=== PATIENT | female | born 1980 | race African-American/Black ===

== ENCOUNTER 2016-11-02 08:53 | Emergency (ER) | payer MEDICAID ==
[~2016-11-02] VITALS: Ht 160 cm; Wt 80.7 kg
[2016-11-02 08:56] VITALS: BP 140/99
== END 2016-11-02 09:40 | disposition home or self-care (01) ==
LOC: ER 08:54
DX: H10.9 Unspecified conjunctivitis (principal)
CPT/HCPCS: A4606; Z7610

== ENCOUNTER 2017-04-03 13:58 | Emergency (ER) | payer BC, MEDICAID ==
[~2017-04-03] VITALS: Ht 157.5 cm; Wt 77.1 kg
[2017-04-03 14:02] VITALS: BP 148/103
== END 2017-04-03 14:37 | disposition home or self-care (01) ==
LOC: ER 14:01
DX: H20.012 Primary iridocyclitis, left eye (principal); E11.9 Type 2 diabetes mellitus without complications
CPT/HCPCS: 99283; A4606; Z7610

== ENCOUNTER 2017-05-16 23:33 | Emergency (ER) | payer BC, MEDICAID, OTHER ==
[~2017-05-16] VITALS: Ht 157.5 cm; Wt 79.4 kg
[2017-05-16 23:38] VITALS: BP 135/92
[2017-05-17] MEDS ORDERED: ACETAMINOPHEN 325 MG TABLET PO ONE (00:30)
[2017-05-17] MEDS ORDERED: CEPHALEXIN MONOHYDRATE 500 MG CAPSULE PO ONE (00:30)
== END 2017-05-17 00:28 | disposition home or self-care (01) ==
LOC: ER 23:33
DX: H60.11 Cellulitis of right external ear (principal); E11.9 Type 2 diabetes mellitus without complications
CPT/HCPCS: 99283; A4606; Z7610

== ENCOUNTER 2018-11-23 08:38 | Emergency (ER) | payer BC, OTHER ==
[~2018-11-23] VITALS: Ht 154.9 cm; Wt 83.0 kg
[2018-11-23] MEDS ORDERED: FLUORESCEIN SODIUM OPHTH 1 EA STRIP ONE (09:07)
--- NOTE | 2018-11-23 09:19 | NUR ---
left eye pain and redness
[2018-11-23] MEDS ORDERED: TONO PEN in ED SUPPLY ONICELL 1 EA MC ONE (09:28)
[2018-11-23] MEDS ORDERED: TETRACAINE HCL 0.5% OPHTALMIC 15 ML BOTTLE EACHEYE ONE (09:30)
[2018-11-23] MEDS ORDERED: FLUORESCEIN SODIUM OPHTH 1 EA STRIP OP ONE (09:30)
[2018-11-23 10:00] VITALS: BP 152/101
--- NOTE | 2018-11-23 10:00 | NUR ---
Patient discharged to home in stable condition. Written and verbal after care instructions given. Patient verbalizes understanding of instruction.
== END 2018-11-23 10:01 | disposition home or self-care (01) ==
LOC: ER 08:42
DX: H10.89 Other conjunctivitis (principal); H57.89 Other specified disorders of eye and adnexa; R51 Headache; E11.9 Type 2 diabetes mellitus without complications